=== PATIENT | male | born 1985 | race African-American/Black ===

== ENCOUNTER 2023-02-06 17:37 | Emergency (ER) | payer MEDICAID, OTHER ==
[~2023-02-06 17:37] MED LIST: DIVA500T53 PO; NEOM28.36 TP; QUET200T PO
== END 2023-02-06 18:28 | disposition left against medical advice (07) ==
LOC: EMS 17:39
DX: Z53.21 Procedure and treatment not carried out due to patient leaving prior to being seen by health care provider (principal)

== ENCOUNTER 2024-05-19 02:34 | Emergency (ER) | payer OTHER ==
[~2024-05-19] VITALS: Ht 172.7 cm; Wt 108.0 kg
[~2024-05-19 02:34] MED LIST changes: +DIVA-153 PO; -DIVA500T53 PO
[2024-05-19 03:09] VITALS: BP 127/79; PULSE 69; RESP 16; TEMP 98.3
[2024-05-19] MEDS ORDERED: PENI500T2 PO (03:13)
[2024-05-19] MEDS ORDERED: IBUP-1554 PO (03:13)
[2024-05-19] MEDS ORDERED: ACET-2080 PO (03:13)
[2024-05-19] MEDS: IBUPROFEN 600 MG TABLET PO ONE ×3 (03:53→03:59)
[2024-05-19] MEDS: ACETAMINOPHEN/CODEINE 300-30 MG TABLET PO ONE ×3 (03:53→03:58)
[2024-05-19] MEDS: CEPHALEXIN MONOHYDRATE 500 MG CAPSULE PO ONE ×3 (03:53→03:58)
== END 2024-05-19 04:05 | disposition home or self-care (01) ==
LOC: EMS 02:34
DX: K04.7 Periapical abscess without sinus (principal); K08.89 Other specified disorders of teeth and supporting structures; E78.00 Pure hypercholesterolemia, unspecified; F20.9 Schizophrenia, unspecified; F31.9 Bipolar disorder, unspecified; K59.00 Constipation, unspecified; Z87.891 Personal history of nicotine dependence
CPT/HCPCS: 96372; 99283; 99284

== ENCOUNTER 2024-05-22 05:25 | Emergency (ER) | payer OTHER ==
[~2024-05-22] VITALS: Ht 175.3 cm; Wt 95.5 kg
[~2024-05-22 05:25] MED LIST changes: +ACET-2080 PO; +IBUP-1554 PO; +PENI500T2 PO
[2024-05-22 05:28] VITALS: BP 131/89; PULSE 82; RESP 16; TEMP 98.3
[2024-05-22] MEDS: KETOROLAC TROMETHAMINE 30 MG/ML VIAL IM ONE (05:46)
[2024-05-22] MEDS: TraMADol HCL 50 MG TABLET PO ONE (05:46)
== END 2024-05-22 06:16 | disposition home or self-care (01) ==
LOC: EMS 05:26
DX: K04.7 Periapical abscess without sinus (principal); K02.9 Dental caries, unspecified; F17.210 Nicotine dependence, cigarettes, uncomplicated; Z88.8 Allergy status to other drugs, medicaments and biological substances
CPT/HCPCS: 99283; 96372; J1885